=== PATIENT | male | born 1985 | race Caucasian/White ===

== ENCOUNTER 2017-03-01 21:51 | Emergency (ER) | payer SELFPAY ==
[~2017-03-01] VITALS: Ht 170.2 cm; Wt 68.0 kg
[2017-03-01 22:06] VITALS: BP 134/81
[2017-03-01 22:33] LABS: CONDITION Y; Hemoglobin 14.1 g/dL (13.5-17.5); Mean Corpuscular Hemoglobin 30.4 pg (28.0-32.0); Mean Corpuscular Hgb Conc. 33.7 g/dL (32.0-36.0); Mean Corpuscular Volume 90.2 fL (80.0-100.0); Mean Platelet Volume 7.7 fL (7.4-10.4); Platelet Count (auto) 266 10^3/uL (140-450); Red Cell Distribution Width 13.1 % (11.6-16.0); SUSPECT SEE PRINTOUT
[2017-03-01 22:46] LABS: INR 0.94 (0.9-1.15); Partial Thromboplastin Time 28.1 sec (22.64-33.71); Prothrombin Time 10.2 sec (9.37-12.3)
[2017-03-01 22:47] LABS: Metamyelocytes % 0; Myelocytes % 0; Promyelocytes % 0; Reactive Lymphocytes 0
[2017-03-01 22:48] LABS: Albumin 3.4 g/dL (3.4-5.0); BUN/Creatinine Ratio 14.5; Bilirubin, Total 0.5 mg/dL (0.2-1.0); Calcium 8.3 mg/dL (8.5-10.1); Potassium 3.5 mmol/L (3.5-5.1); Total Protein 6.7 g/dL (6.4-8.2)
[2017-03-01 23:11] LABS: Platelet Estimate Adequate; RBC Morphology Normal
== END 2017-03-02 02:22 | disposition left against medical advice (07) ==
LOC: ER 21:59
DX: L02.01 Cutaneous abscess of face (principal); Z53.21 Procedure and treatment not carried out due to patient leaving prior to being seen by health care provider
CPT/HCPCS: 36415; 80053; 85007; 85027; 85610; 85730

== ENCOUNTER 2025-08-11 12:45 | Emergency (ER) | payer SELFPAY ==
[~2025-08-11] VITALS: Ht 170.2 cm; Wt 68.1 kg
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
[2025-08-11 14:45] VITALS: BP 146/89; PULSE 105; RESP 17; TEMP 98.1; O2SAT 96
== END 2025-08-11 14:47 | disposition home or self-care (01) ==
LOC: ER 12:45
DX: M25.512 Pain in left shoulder (principal); F17.210 Nicotine dependence, cigarettes, uncomplicated; Z79.899 Other long term (current) drug therapy
CPT/HCPCS: 73030